=== PATIENT | female | born 1980 | race Caucasian/White ===

== ENCOUNTER 2020-06-18 19:02 | Emergency (ER) | payer BC, SELFPAY ==
[2020-06-18 20:15] LABS: Absolute Lymphocytes (CBC) 3.2 K/uL (0.7-4.9); Basophils % 1.2 % (0-1.3); Hematocrit 33.7 % (36.0-45.0); Lymphocytes % 30.9 % (15.3-44.8); MPV 8.5 fL (7.6-11.3); RBC Red Blood Cell Count 4.59 M/uL (3.86-4.86)
[2020-06-18 20:16] LABS: Protime INR 1.27
--- NOTE | 2020-06-18 20:33 | RAD REPORT ---
EXAM DESCRIPTION: RAD - Chest Single View - 06/18/2020 8:23 pm CLINICAL HISTORY: CHEST PAIN Chest pain. COMPARISON: <Comparisons> FINDINGS: Portable technique limits examination quality. The lungs are grossly clear. The heart is normal in size. No displaced fractures. IMPRESSION: No acute intrathoracic process suspected.
[2020-06-18 20:42] LABS: ALT/SGPT 17 U/L (12-78); AST/SGOT 10 U/L (15-37); Albumin 3.3 g/dL (3.4-5.0); Alkaline Phosphatase 91 U/L (45-117); BUN Blood Urea Nitrogen 8 mg/dL (7-18); Bicarbonate 26 mmol/L (21-32); Bilirubin Direct < 0.1 mg/dL (0-0.2); Bilirubin Total 0.4 mg/dL (0.2-1.0); Glucose Level 163 mg/dL (74-106); Magnesium 2.3 mg/dL (1.8-2.4); NT PRO-BNP 34 pg/mL (<125); Protein, Total 7.4 g/dL (6.4-8.2); Sodium Level 142 mmol/L (136-145); Troponin (Emerg Dept Use Only) < 0.02 ng/mL (0.0-0.045)
[2020-06-18 20:43] LABS: Potassium 2.8 mmol/L (3.5-5.1)
[2020-06-18] MEDS ORDERED: POTASSIUM 25 MEQ EFFERV TAB ONE (21:23)
[2020-06-18] MEDS ORDERED: NA CHLORIDE 0.9% 100 ML ONE (21:23)
[2020-06-18] MEDS ORDERED: KCL 20 MEQ/100 mL IVPB 20 MEQ/100 ML BAG IV ONE (21:23)
--- NOTE | 2020-06-18 23:07 | ER ---
Nurse's Notes [facility] Name: Doris Gamez Age: 40 yrs Sex: Female : 1980 Arrival Date: 06/18/2020 Time: 19:04 Bed 6 Private MD: Diagnosis: Chest pain, unspecified;Hypokalemia Presentation: 06/18 19:19 Chief complaint: Patient states: I was eating dinner and had sudden onset chest pain. I jb4 thought it was a panic attack at. It was a 9/10 and I felt like someone was standing on my chest, and the pain radiated to both arms and up my neck. Coronavirus screen: Client denies travel out of the [place] in the last 14 days. At this time, the client does not indicate any symptoms associated with coronavirus-19. Ebola Screen: No symptoms or risks identified at this time. Initial Sepsis Screen: Does the patient meet any 2 criteria? No. Patient's initial sepsis screen is negative. Does the patient have a suspected source of infection? No. Patient's initial sepsis screen is negative. Risk Assessment: Do you want to hurt yourself or someone else? Patient reports no desire to harm self or others. Onset of symptoms was June 18, 2020. Transition of care: patient was not received from another setting of care. 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 - Social history:: Smoking status: Reported history of juuling and/or vaping. Screenin:56 Abuse screen: Denies threats or abuse. Denies injuries from another. Nutritional wh screening: No deficits noted. Tuberculosis screening: No symptoms or risk factors identified. Fall Risk None identified. Assessment: 19:56 General: Appears in no apparent distress. Behavior is calm, cooperative, appropriate wh for age. Pain: Complains of pain in chest Pain does not radiate. Pain currently is 4 out of 10 on a pain scale. Quality of pain is described as squeezing, Pain began 1 hour ago. Neuro: Level of Consciousness is awake, alert, obeys commands, Oriented to person, place, time, situation, Appropriate for age. Cardiovascular: Heart tones S1 S2 Rhythm is sinus rhythm. Respiratory: Airway is patent Respiratory effort is even, unlabored, Respiratory pattern is regular, symmetrical, Breath sounds are clear bilaterally. GI: Abdomen is non-distended. : No signs and/or symptoms were reported regarding the genitourinary system. EENT: No signs and/or symptoms were reported regarding the EENT system. Derm: Skin is intact, is healthy with good turgor, Skin is pink, warm \T\ dry. normal. Musculoskeletal: Circulation, motion, and sensation intact. 21:25 Reassessment: Patient appears in no apparent distress at this time. No changes from previously documented assessment. Patient and/or family updated on plan of care and expected duration. Pain level reassessed. Patient is alert, oriented x 3, equal unlabored respirations, skin warm/dry/pink. 22:50 Reassessment: Patient appears in no apparent distress at this time. Patient and/or family updated on plan of care and expected duration. Pain level reassessed. Patient is alert, oriented x 3, equal unlabored respirations, skin warm/dry/pink. Vital Signs: 19:19 BP 160 / 86; Pulse 89; Resp 18; Temp 98.9; Pulse Ox 96% on R/A; Weight 117.93 kg (R); jb4 Height 5 ft. 4 in. (162.56 cm); Pain 0/10; 19:58 BP 120 / 75; Pulse 79; Resp 18; Pulse Ox 96% on R/A; wh 21:25 BP 107 / 79; Pulse 73; Resp 18; Pulse Ox 96% on R/A; wh 22:51 BP 131 / 86; Pulse 65; Resp 18; Pulse Ox 100% on R/A; wh 19:19 Body Mass Index 44.63 (117.93 kg, 162.56 cm) jb4 ED Course: 19:04 Patient arrived in ED. cf2 19:21 Triage completed. jb4 19:22 Arm band placed on right wrist. jb4 19:24 Katia Candelario, RN is Primary Nurse. vg1 19:37 Inserted saline lock: 20 gauge in left antecubital area, using aseptic technique. Blood oe collected. 19:48 Phyllis Garcia, RN is Primary Nurse. 19:49 Nathanael Means PA is PHCP. jr8 19:49 Dotne Noyola MD is Attending Physician. jr8 19:57 Patient has correct armband on for positive identification. Bed in low position. Call light in reach. Side rails up X 1. environmental monitoring specialist on. Pulse ox on. NIBP on. 19:58 Patient maintains SpO2 saturation greater than 95% on room air. 20:19 XRAY Chest (1 view) In Process Unspecified. EDMS 23:07 Jalil Grijalva MD is Referral Physician. 8 23:20 No provider procedures requiring assistance completed. IV discontinued, intact, bleeding controlled, No redness/swelling at site. Administered Medications: 21:11 Drug: Potassium Chloride 20 mEq Route: IV; Rate: calculated rate; Site: left wh antecubital; 23:21 Follow up: Response: No adverse reaction; IV Status: Completed infusion 21:11 Drug: Potassium Effervescent Tablet 50 mEq Route: PO; 23:21 Follow up: Response: No adverse reaction Outcome: 23:07 Discharge ordered by . jr8 23:20 Discharged to home ambulatory, with family. 23:20 Condition: stable 23:20 Discharge instructions given to patient, family, Instructed on discharge instructions, follow up and referral plans. POC Demonstrated understanding of instructions, follow-up care, POC 23:21 Patient left the ED. Signatures: Dispatcher [employer] EDCA Nathanael Means PA PA jr8 Jaquan Harmon, RN RN jb4 Prasad Adam Phyllis Garcia, RN RN Nehemias Avila 2 Katia Candelario, RN RN vg1
--- NOTE | 2020-06-18 23:08 | EDPHYS ---
Physician Documentation [facility] Name: Doris Gamez Age: 40 yrs Sex: Female : 1980 Arrival Date: 06/18/2020 Time: 19:04 Bed 6 Private MD: ED Physician Donte Noyola HPI: 06/18 20:47 This 40 yrs old Female presents to ER via Ambulatory with complaints of Chest jr8 Pain. 20:47 The patient or guardian reports chest pain that is located primarily in the anterior jr8 chest wall, bilaterally. Onset: acutely, just prior to arrival, today. The pain radiates to the left shoulder, jaw. Associated signs and symptoms: The patient has no apparent associated signs or symptoms. The chest pain is described as squeezing. Duration: The patient or guardian reports a single episode, that lasted 30 minute(s). Modifying factors: The symptoms are alleviated by nothing. the symptoms are aggravated by nothing. Severity of pain: At its worst the pain was moderate in the emergency department the pain has resolved and did so just prior to arrival. The patient has not experienced similar symptoms in the past. The patient has not recently seen a physician. RN ONCOLOGY CLINICAL: 19:22 LMP 06/04/2020 jb4 Historical: - Allergies: 19:22 Morphine (Hives); jb4 - Home Meds: 19:22 Trazodone Oral [Active]; Methylphendate [Active]; Ativan Oral [Active]; jb4 - PMHx: 19:22 insomnia; ADD/ADHD; Anxiety; jb4 - Immunization history:: Adult Immunizations up to date, Client reports receiving the 2nd dose of the Covid vaccine. - Social history:: Smoking status: Reported history of juuling and/or vaping. ROS: 20:47 Eyes: Negative for injury, pain, redness, and discharge, ENT: Negative for injury, jr8 pain, and discharge, Neck: Negative for injury, pain, and swelling, Respiratory: Negative for shortness of breath, cough, wheezing, and pleuritic chest pain, Abdomen/GI: Negative for abdominal pain, nausea, vomiting, diarrhea, and constipation, Back: Negative for injury and pain, MS/Extremity: Negative for injury and deformity, Skin: Negative for injury, rash, and discoloration, Neuro: Negative for headache, weakness, numbness, tingling, and seizure. 20:47 Cardiovascular: Positive for chest pain, Negative for edema, orthopnea, palpitations, paroxysmal nocturnal dyspnea. Exam: 20:47 Constitutional: This is a well developed, well nourished patient who is awake, alert, jr8 and in no acute distress. Neck: Trachea midline, no thyromegaly or masses palpated, and no cervical lymphadenopathy. Supple, full range of motion without nuchal rigidity, or vertebral point tenderness. No Meningismus. Chest/axilla: Normal chest wall appearance and motion. Nontender with no deformity. No lesions are appreciated. Cardiovascular: Regular rate and rhythm with a normal S1 and S2. No gallops, murmurs, or rubs. Normal PMI, no JVD. No pulse deficits. Respiratory: Lungs have equal breath sounds bilaterally, clear to auscultation and percussion. No rales, rhonchi or wheezes noted. No increased work of breathing, no retractions or nasal flaring. Abdomen/GI: Soft, non-tender, with normal bowel sounds. No distension or tympany. No guarding or rebound. No evidence of tenderness throughout. Back: No spinal tenderness. No costovertebral tenderness. Full range of motion. Skin: Warm, dry with normal turgor. Normal color with no rashes, no lesions, and no evidence of cellulitis. MS/ Extremity: Pulses equal, no cyanosis. Neurovascular intact. Full, normal range of motion. Neuro: Awake and alert, GCS 15, oriented to person, place, time, and situation. Cranial nerves II-XII grossly intact. Motor strength 5/5 in all extremities. Sensory grossly intact. Cerebellar exam normal. Normal gait. Vital Signs: 19:19 BP 160 / 86; Pulse 89; Resp 18; Temp 98.9; Pulse Ox 96% on R/A; Weight 117.93 kg (R); jb4 Height 5 ft. 4 in. (162.56 cm); Pain 0/10; 19:58 BP 120 / 75; Pulse 79; Resp 18; Pulse Ox 96% on R/A; wh 21:25 BP 107 / 79; Pulse 73; Resp 18; Pulse Ox 96% on R/A; wh 22:51 BP 131 / 86; Pulse 65; Resp 18; Pulse Ox 100% on R/A; wh 19:19 Body Mass Index 44.63 (117.93 kg, 162.56 cm) jb4 MDM: 19:49 Patient medically screened. 8 23:06 Data reviewed: vital signs, nurses notes, lab test result(s), EKG, radiologic studies, jr8 plain films. Data interpreted: Pulse oximetry: on room air is 100 %. Interpretation: normal. Counseling: I had a detailed discussion with the patient and/or guardian regarding: the historical points, exam findings, and any diagnostic results supporting the discharge/admit diagnosis, lab results, radiology results, the need for outpatient follow up, a improvement coordinator, to return to the emergency department if symptoms worsen or persist or if there are any questions or concerns that arise at home. Response to treatment: the patient's symptoms have resolved after treatment. 06/18 19:49 Order name: Basic Metabolic Panel 06/18 19:49 Order name: CBC with Diff 06/18 19:49 Order name: LFT's 06/18 19:49 Order name: Magnesium 06/18 19:49 Order name: NT PRO-BNP; Complete Time: 20:44 06/18 19:49 Order name: PT-INR; Complete Time: 20:37 06/18 19:49 Order name: Troponin (emerg Dept Use Only); Complete Time: 20:44 06/18 19:49 Order name: XRAY Chest (1 view); Complete Time: 20:37 06/18 19:49 Order name: Basic Metabolic Panel; Complete Time: 20:44 [facility] 06/18 19:49 Order name: CBC with Automated Diff; Complete Time: 20:37 [facility] 06/18 19:49 Order name: Liver (Hepatic) Function; Complete Time: 20:44 [facility] 06/18 19:49 Order name: Magnesium; Complete Time: 20:44 [facility] 06/18 22:04 Order name: Troponin (emerg Dept Use Only); Complete Time: 23:06 [facility] 06/18 19:49 Order name: EKG; Complete Time: 19:50 06/18 19:49 Order name: Cardiac monitoring; Complete Time: 19:59 06/18 19:49 Order name: EKG - Nurse/Tech; Complete Time: 19:59 06/18 19:49 Order name: IV Saline Lock; Complete Time: 19:59 06/18 19:49 Order name: Labs collected and sent; Complete Time: 06/18 19:49 Order name: O2 Per Protocol; Complete Time: 06/18 19:49 Order name: O2 Sat Monitoring; Complete Time: Administered Medications: 21:11 Drug: Potassium Chloride 20 mEq Route: IV; Rate: calculated rate; Site: left antecubital; 23:21 Follow up: Response: No adverse reaction; IV Status: Completed infusion 21:11 Drug: Potassium Effervescent Tablet 50 mEq Route: PO; 23:21 Follow up: Response: No adverse reaction Disposition: 23:54 Co-signature as Attending Physician, Donte Noyola MD. pkmary Disposition: 06/18/20 23:07 Discharged to Home. Impression: Chest pain, unspecified, Hypokalemia. - Condition is Stable. - Discharge Instructions: Nonspecific Chest Pain, Potassium Content of Foods, Hypokalemia. - Medication Reconciliation Form, Thank You Letter, Antibiotic Education, Prescription Opioid Use form. - Follow up: Jalil Grijalva MD; When: 2 - 3 days; Reason: Recheck today's complaints, Continuance of care, Re-evaluation by your physician. - Problem is new. - Symptoms have improved. Signatures: Dispatcher [employer] EDMS Donte Noyola MD MD [facility] Nathanael Means PA PA jr8 Jaquan Harmon RN RN jb4 Phyllis Garcia RN RN Corrections: (The following items were deleted from the chart) 23:21 23:07 06/18/2020 23:07 Discharged to Home. Impression: Chest pain, unspecified; Hypokalemia. Condition is Stable. Forms are Medication Reconciliation Form, Thank You Letter, Antibiotic Education, Prescription Opioid Use. Follow up: Jalil Grijalva; When: 2 - 3 days; Reason: Recheck today's complaints, Continuance of care, Re-evaluation by your physician. Problem is new. Symptoms have improved. jr8
[2020-06-18 23:36] VITALS: TEMP 98.9
[2020-06-18 23:40] VITALS: BP 131/86; O2SAT 100
== END 2020-06-18 23:21 | disposition home or self-care (01) ==
LOC: ER 19:02
DX: E87.6 Hypokalemia (principal); F41.9 Anxiety disorder, unspecified; F90.9 Attention-deficit hyperactivity disorder, unspecified type; Z88.5 Allergy status to narcotic agent
CPT/HCPCS: 36415; 71045; 80048; 80076; 83735; 83880; 84484; 85025; 85610; 93005; 96365; 96366; 99285; J3480

== ENCOUNTER 2021-05-03 03:41 | Observation (INO) | payer BC, SELFPAY ==
--- OUTSIDE RECORDS SUMMARY | 2021-05-03 03:45 | XMS REPORT | Continuity of Care Document ---
:1980 Author Organization [facility] t Address [address] [place] [address] Care Team Providers Name Role Phone Master Mueller MD Primary Care Physician Master Mueller MD Attending Clinician Doctor Unassigned, Name Attending Clinician Unavailable Payers Payer Name Policy Type Policy Number Effective Date Expiration Date S ource Problems Condition Condition Condition Status Onset Resolution Last Treating Co mments Source Name Details Category Date Date Treatment Clinician Date Presence Presence Disease Active Unive rs of 52 mg of 52 mg 1-21 ity [place] trel-rele[place] trel-relea 00 Me dical sing sing Branch intrauteri intrauteri ne device ne device (IUD) (IUD) Attention Attention Disease Active Uni vers deficit deficit 1-07 ity of disorder disorder 00:00: [place] (ADD) in (ADD) in 00 Medica l adult adult Branch Morbid Morbid Disease Active Univers obesity obesity 1-06 [place] of with body with body [place] mass index mass index 00 Me dical of of Branch 40.0-49.9 40.0-49.9 Anxiety Anxiety Disease Active Univers 2-06 ity of 00:00: [place] 00 Medical Branch Dysmenorrh Dysmenorrh Disease Active U bisi ea ea 1-17 ity of 00:00: [place] 00 Medical [facility] Obesity Obesity Disease Active Univers (BMI (BMI 1-17 ity of 30-39.9) 30-39.9) 00:00: Medical Branch Well woman Well woman Disease Active U nivers exam exam -17 ity of 00:00: [place] 00 Medical Branch Allergies, Adverse Reactions, Alerts Allergy Allergy Status Severity Reaction(s) Onset Inactive Treating Comm ents Source Name Type Date Date Clinician Morphine Propensi Active Rash Univer s ty to 03-03 ity of adverse 00:00: [place] reaction 00 Medical s Branch Social History Social Habit Start Date Stop Date Quantity Comments Source Exposure to Not sure [facility] SARS-CoV-2 [facility] (event) [facility] Alcohol intake 2021-03-02 2021-03-02 0 /d University of 00:00:00 00:00:00 [facility] History of 2014-02-21 Cigarette Smoker Universi ty of tobacco use 00:00:00 [facility] Sex Assigned At [birth year] Universit y of 00:00:00 00:00:00 [facility] Smoking Status Start Date Stop Date Source Former smoker 2020-04-14 00:00:00 2020-04-14 00:00:00 Universi ty of [facility] Medications Ordered Filled Start Stop Current Ordering Indication Dosage Frequency Signature Comments Components Source Medication Medication Date Date Medication? Clinician (SIG) Name Name methylpheni Yes [id number] 72mg Take 2 Univers date HCl 36 2-01 tablets by it y of mg 24 hr 00:00: mouth [place] tablet 00 daily. Medical Branch LORazepam Yes [id number] 1mg Take 1 Univers mg tablet 2-01 tablet by ity o f 00:00: mouth 2 [place] (two) Medical times [facility] daily as needed for Anxiety or Agitation. methylpheni Yes [id number] 72mg Take 2 Univers date HCl 36 2-01 tablets by it y of mg 24 hr 00:00: mouth [place] tablet 00 daily. Medical Branch LORazepam 1 Yes [id number] 1mg Take 1 Univers mg tablet 2-01 tablet by ity o f 00:00: mouth 2 [place] (two) Medical times [facility] daily as needed for Anxiety or Agitation. traZODone Yes [id number] TAKE 4 Un alysia 50 mg 1-10 TABLETS BY ity of tablet 00:00: MOUTH [place] 00 EVERY Medical NIGHT AT Branch BEDTIME traZODone Yes [id number] TAKE 4 Un alysia 50 mg 1-10 TABLETS BY ity of tablet 00:00: MOUTH [place] 00 EVERY Medical NIGHT AT Branch BEDTIME ARIPiprazol 2020-02 Yes [id number] 10mg Take 1 Univers e (ABILIFY) 2-08 tablet by ity of 10 mg 00:00: mouth [place] tablet 00 daily. Medical [facility] ARIPiprazol 2020-02 Yes [id number] 10mg Take 1 Univers e (ABILIFY) 2-08 tablet by ity of 10 mg 00:00: mouth [place] tablet 00 daily. [facility] Immunizations Ordered Filled Immunization Date Status Comments [facility] e Immunization Name Name Influenza Virus 2021-03-02 Completed Universit y of Vaccine Quad IM, 00:00:00 [facility] dical Preserv and ABX Branch Free 6 MO-64 YRS Influenza Virus 2021-03-02 Completed Universit y of Vaccine Quad IM, 00:00:00 [facility] dical Preserv and ABX Branch Free 6 MO-64 YRS SARS-COV-2 COVID-19 2020-05-18 Completed Unive rsity of MODERNA VACCINE 00:00:00 [facility] SARS-COV-2 COVID-19 2020-05-18 Completed Unive rsity of MODERNA VACCINE 00:00:00 [facility] SARS-COV-2 COVID-19 2020-04-20 Completed Unive rsity of MODERNA VACCINE 00:00:00 [facility] SARS-COV-2 COVID-19 2020-04-20 Completed Unive rsity of MODERNA VACCINE 00:00:00 [facility] Influenza Virus 2020-02-27 Completed Universit y of Vaccine Quad .5 mL 00:00:00 [facility] IM 6+ MO Branch Influenza Virus 2020-02-27 Completed Universit y of Vaccine Quad .5 mL 00:00:00 [facility] 6+ MO Branch Procedures Procedure Date / Time Performing Clinician Source Performed MEDICATION CORRESPONDENCE 2021-03-26 06:01:00 Doctor Unassigned, [facility] Encounters Start End Encounter Admission Attending Care Care Encounter Source Date/Time Date/Time Type Type Clinicians Facility Department ID 2021-03-30 2021-03-30 Telephone AMINA Mueller [id number] Univers 00:00:00 00:00:00 [facility] [id number] it y of Master MOREL [id number] Jovon as BISHNU?BLEA [id number] [place] ZAMUDIO [address] [place] [address] MEDICAL OFFICE BUILDING 2021-03-26 2021-03-26 Orders Doctor ILEANA [id number] Univers 00:00:00 00:00:00 Only Unassigned, CRIO [id number] ity of Progress [facility] [id number] Jovon as [id number] [facility] 009 [facility] Results This patient has no known results.
[2021-05-03] MEDS ORDERED: CYCLOBENZAPRINE 10 MG TAB ONE (06:00)
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
[2021-05-03] MEDS ORDERED: PANTOPRAZOLE 40MG TABLET PO ONE (07:32)
[2021-05-03 07:35] LABS: SARS-COV-2 RT PCR NEGATIVE (NEGATIVE)
[2021-05-03] MEDS ORDERED: MORPHINE 4 MG/ML SYR IV PRN ×2 (08:56)
[2021-05-03] MEDS ORDERED: ONDANSETRON 4 MG/2 ML VIAL IV PRN ×2 (08:56→09:04)
[2021-05-03] MEDS ORDERED: FENTANYL CITR 100 MCG/2 ML IV PRN (09:00)
[2021-05-03] MEDS ORDERED: HYDROCODONE/APAP 5/325 MG TAB PO ONE (11:32)
[2021-05-03] MEDS ORDERED: HYDROCODONE/APAP 5/325 MG TAB ONE (11:34)
[2021-05-03 22:58] VITALS: TEMP 97.7
[2021-05-03 23:03] VITALS: BP 97/65; O2SAT 98
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
== END 2021-05-03 21:00 | disposition home or self-care (01) ==
LOC: ER 03:41 → ERHOLD 06:48 → UNDODISOB 11:52 → 4TH 21:42 → ERHOLD 21:42
PROVIDERS: ADMIT Surgery; ATTEND Surgery
DX: S27.0XXA Traumatic pneumothorax, initial encounter (principal); S22.42XA Multiple fractures of ribs, left side, initial encounter for closed fracture; V49.40XA Driver injured in collision with unspecified motor vehicles in traffic accident, initial encounter; F41.9 Anxiety disorder, unspecified; G47.00 Insomnia, unspecified; F90.9 Attention-deficit hyperactivity disorder, unspecified type; F17.290 Nicotine dependence, other tobacco product, uncomplicated; Z88.6 Allergy status to analgesic agent; Z20.822 Contact with and (suspected) exposure to COVID-19
CPT/HCPCS: 0240U; 70450; 71250; 72125; 99285; J3010; J2405

== ENCOUNTER 2021-05-03 14:28 | Observation (INO) | payer BC ==
--- OUTSIDE RECORDS SUMMARY | 2021-05-03 14:31 | XMS REPORT | Continuity of Care Document ---
:1980 Author Organization [facility] t Address [address] [place] [address] Care Team Providers Name Role Phone Master [...] deficit 1-07 ity of disorder disorder 00:00: [place] (ADD) in (ADD) in 00 Medica l adult adult Branch Morbid Morbid Disease Active Univers obesity obesity 1-06 ity of with body with body 00:00: Cathleen s mass index mass index 00 Me dical of of Branch 40.0-49.9 40.0-49.9 Anxiety Anxiety Disease Active Univers 2-06 ity of 00:00: [place] 00 Medical Branch Dysmenorrh Dysmenorrh Disease Active U bisi ea ea 1-17 ity of 00:00: 00 Medical Branch Obesity Obesity Disease Active Univers (BMI (BMI 1-17 ity of 30-39.9) 30-39.9) 00:00: Medical Branch Well woman Well woman Disease Active U nivers exam exam -17 ity of 00:00: [place] [facility] Allergies, Adverse Reactions, Alerts Allergy Allergy Status Severity Reaction(s) Onset Inactive Treating Comm ents Source Name Type Date Date Clinician Morphine Propensi Active Rash Univer s ty to 03-03 ity of adverse 00:00: [place] reaction 00 Medical s Branch Social History Social Habit Start Date Stop Date Quantity Comments Source Exposure to Not sure [facility] SARS-CoV-2 [facility] (event) [place] Alcohol intake 2021-03-02 2021-03-02 0 /d University of 00:00:00 00:00:00 [facility] History of 2014-02-21 Cigarette Smoker Universi ty of tobacco use 00:00:00 [facility] Sex Ass[birth year] At [birth year] Universit y of 00:00:00 00:00:00 [facility] Smoking Status Start Date Stop Date Source Former smoker 2020-04-14 00:00:00 2020-04-14 00:00:00 Universi ty of [facility] Medications Ordered Filled Start Stop Current Ordering Indication Dosage Frequency Signature Comments Components Source Medication Medication Date Date Medication? Clinician (SIG) Name Name methylpheni Yes [id number] 72mg Take 2 Univers date HCl 36 2-01 tablets by it y of mg 24 hr 00:00: mouth [place] tablet 00 daily. Medical Branch LORazepam Yes [id number] 1mg Take 1 Univers mg tablet 2-01 tablet by ity o f 00:00: mouth 2 (two) Medical times [place] daily as needed for Anxiety or Agitation. methylpheni Yes [id number] 72mg Take 2 Univers date HCl 36 2-01 tablets by it y of mg 24 hr 00:00: mouth [place] tablet 00 daily. Medical Branch LORazepam 1 Yes [id number] 1mg Take 1 Univers mg tablet 2-01 tablet by ity o f 00:00: mouth 2 (two) Medical times [place] daily as needed for Anxiety or Agitation. traZODone Yes [id number] TAKE 4 Un alysia 50 mg 1-10 TABLETS BY ity of tablet 00:00: MOUTH [place] 00 EVERY Medical NIGHT AT Branch BEDTIME traZODone 0 Yes [id number] TAKE 4 Un alysia 50 mg 1-10 TABLETS BY ity of tablet 00:00: MOUTH [place] 00 EVERY Medical NIGHT AT Branch BEDTIME ARIPiprazol 2020-02 Yes [id number] 10mg Take 1 Univers e (ABILIFY) 2-08 tablet by ity of 10 mg 00:00: mouth [place] tablet 00 daily. Medical Branch ARIPiprazol 2020-02 Yes [id number] 10mg Take 1 Univers e (ABILIFY) 2-08 tablet by ity of 10 mg 00:00: mouth [place] tablet 00 daily. [facility] Immunizations Ordered Filled Immunization Date Status Comments [facility] e Immunization Name Name Influenza Virus 2021-03-02 Completed Universit y of Vaccine Quad IM, 00:00:00 [facility] dical Preserv and ABX Branch Free 6 MO-64 YRS Influenza Virus 2021-03-02 Completed Universit y of Vaccine Quad IM, 00:00:00 [facility] dical Preserv and ABX Branch Free 6 MO-64 YRS SARS-COV-2 COVID-19 2020-05-18 Completed Unive rsity of MODERNA VACCINE 00:00:00 [facility] SARS-COV-2 COVID-19 2020-05-18 Completed Unive rsity of MODERNA VACCINE 00:00:00 [facility] SARS-COV-2 COVID-19 2020-04-20 Completed Unive rsity of MODERNA VACCINE 00:00:00 [facility] SARS-COV-2 COVID-19 2020-04-20 Completed Unive rsity of MODERNA VACCINE 00:00:00 [facility] Influenza Virus 2020-02-27 Completed Universit y of Vaccine Quad .5 mL 00:00:00 [place] [facility] IM 6+ MO Branch Influenza Virus 2020-02-27 Completed Universit y of Vaccine Quad .5 mL 00:00:00 [place] [facility] 6+ MO Branch Procedures Procedure Date / Time Performing Clinician Source Performed MEDICATION CORRESPONDENCE 2021-03-26 06:01:00 Doctor Unassigned, [facility] [place] [facility] Encounters Start End Encounter Admission Attending Care Care Encounter Source Date/Time Date/Time Type Type Clinicians Facility Department ID 2021-03-30 2021-03-30 Telephone AMINA Mueller [id number] Univers 00:00:00 00:00:00 [facility] [id number] it y of Master ADRIEL [id number] Jovon as BISHNU?BLEA [id number] [place] [address] MEDICAL OFFICE BUILDING 2021-03-26 2021-03-26 Orders Doctor ILEANA [id number] Univers 00:00:00 00:00:00 Only Unassigned, CIRO [id number] ity of [place] [facility] [id number] Jovon as [phone] [place] [id number] Branch Results This patient has no known results.
[2021-05-03 15:51] LABS: Absolute Lymphocytes (CBC) 1.5 K/uL (0.7-4.9); Hematocrit 33.5 % (36.0-45.0); Lymphocytes % 10.9 % (15.3-44.8); MPV 7.9 fL (7.6-11.3); RBC Red Blood Cell Count 4.48 M/uL (3.86-4.86)
[2021-05-03] MEDS ORDERED: NA CHLORIDE 0.9% 1,000 ML ONE (15:55)
[2021-05-03] MEDS ORDERED: FENTANYL CITR 100 MCG/2 ML ONE ×2 (15:55→18:12)
[2021-05-03] MEDS ORDERED: ONDANSETRON 4 MG/2 ML VIAL ONE (15:55)
--- NOTE | 2021-05-03 16:03 | RAD REPORT ---
EXAM DESCRIPTION: RAD - Chest Single View - 05/03/2021 3:53 pm CLINICAL HISTORY: CHEST PAIN COMPARISON: Chest Single View dated 06/18/2020; Thorax Wo Con dated 05/03/2021 FINDINGS: Lines: None. Lungs: Ill-defined airspace disease bilaterally, left greater than right. Pleural: Subpleural thickening in left lung. Cardiac: The heart size is within normal limits. Bones: Rib fractures better demonstrated on the CT from earlier in the day. Other: IMPRESSION: Basilar airspace disease, left greater than right probably represents atelectasis in the setting of acute rib fractures. No pneumothorax identified .
[2021-05-03 16:05] LABS: Potassium 3.5 mmol/L (3.5-5.1)
--- NOTE | 2021-05-03 16:58 | RAD REPORT ---
EXAM DESCRIPTION: CT - Thorax W/ Con - 05/03/2021 4:46 pm CLINICAL HISTORY: PTX;Pain COMPARISON: Thorax Wo Con dated 05/03/2021; Chest Single View dated 05/03/2021 FINDINGS: Chest Wall: Small right thyroid nodule. Lungs: There is underlying consolidative airspace disease in left lower lobe. Pleura: Small left greater than right pleural effusions. Mediastinum/kasey: No pathologic lymphadenopathy. Pulmonary arteries/Aorta: No filling defect identified. No aortic aneurysm. Heart: No significant pericardial effusion. Normal heart size. Upper abdomen: Partial gastrectomy. Bones: Left third, fourth, fifth rib fractures again noted. All CT scans are performed using dose optimization technique as appropriate and may include automated exposure control or mA/KV adjustment according to patient size. IMPRESSION: Bilateral pleural effusions, left greater than right. The left pleural fluid has Hounsfi eld units above that of simple fluid. This may represent a combination of a small hemothorax and flui d on the left. Underlying airspace disease, presumably atelectasis given the time course of developme nt. No pneumothorax.
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
[2021-05-03] MEDS ORDERED: NA CHLORIDE 0.9% 100 ML IV ONE (18:13)
[2021-05-03] MEDS ORDERED: PIPERACIL/TAZO 3.375 GM VIAL IV ONE (18:13)
[2021-05-03] MEDS ORDERED: ONDANSETRON 4 MG/2 ML VIAL IV PRN ×3 (21:06→23:42)
[2021-05-03] MEDS ORDERED: ACETAMINOPHEN 500 MG TAB PO PRN ×2 (21:06→23:42)
[2021-05-03] MEDS ORDERED: Levofloxacin 750mg IV 750 MG/150 ML BAG IV SCH ×2 (22:00→23:00)
[2021-05-03] MEDS ORDERED: TRAZODONE 50 MG TABLET PO PRN ×2 (22:37→23:42)
[2021-05-03] MEDS ORDERED: MORPHINE 2 MG/ML SYR IV PRN (22:37)
[2021-05-03] MEDS ORDERED: MEPERIDINE HCL 25 MG/ML SYR IV PRN ×2 (22:48→23:42)
[2021-05-03] MEDS ORDERED: Levofloxacin 750mg IV 750 MG/150 ML BAG IV ONE ×2 (23:00)
[2021-05-03] MEDS ORDERED: HYDROCORTISONE SUC 100 MG INJ IV ONE (23:47)
[2021-05-03] MEDS ORDERED: MEPERIDINE HCL 25 MG/ML SYR IVP PRN (23:47)
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
[2021-05-03] MEDS ORDERED: MEPERIDINE HCL 25 MG/ML SYR ONE (23:59)
[2021-05-04] MEDS ORDERED: Levofloxacin 750mg IV 750 MG/150 ML BAG IV ONE
[2021-05-04] MEDS ORDERED: TRAZODONE 50 MG TABLET ONE
[2021-05-04] MEDS ORDERED: ALBUTEROL 2.5 MG/3 ML NEB SOL NEB SCH ×2 (02:00)
[2021-05-04] MEDS ORDERED: IPRATROPIUM BROM 0.5MG/2.5ML NEB SCH ×2 (02:00)
[2021-05-04 03:04] VITALS: BMI 43.9
[2021-05-04] MEDS: MEPERIDINE HCL 25 MG/ML SYR IVP PRN ×3 (04:50→12:21)
[2021-05-04 05:34] LABS: Absolute Lymphocytes (CBC) 0.9 K/uL (0.7-4.9); Hematocrit 30.5 % (36.0-45.0); Lymphocytes % 8.5 % (15.3-44.8); RBC Red Blood Cell Count 4.03 M/uL (3.86-4.86)
[2021-05-04 05:47] LABS: Bilirubin Total 0.6 mg/dL (0.2-1.0); Phosphorus 2.1 mg/dL (2.5-4.9); Potassium 3.6 mmol/L (3.5-5.1); Protein, Total 7.1 g/dL (6.4-8.2)
[2021-05-04 08:01] LABS: Anisocytosis SLIGHT; Blood Morphology Comment NOTED (NOT SEEN); Hypochromasia 1+; Platelet Estimate ADEQ; White Blood Cell Scan OK (OK)
[2021-05-04] MEDS ORDERED: POTASSIUM PHOS 30 MM in NA CHLORIDE 0.9% 500 ML IV ONE (09:00)
[2021-05-04] MEDS ORDERED: LIDOCAINE 5% OINT 30 GM TUBE TOP SCH (09:00)
[2021-05-04] MEDS ORDERED: ENOXAPARIN 40 MG/0.4 ML SQ SCH ×2 (09:00)
[2021-05-04 09:39] VITALS: TEMP 98.1
[2021-05-04 12:39] VITALS: BP 145/90; O2SAT 97
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
[2021-05-04] MEDS ORDERED: Levofloxacin 750mg IV 750 MG/150 ML BAG IV SCH ×2 (21:00)
== END 2021-05-04 13:45 | disposition home or self-care (01) ==
LOC: ER 14:28 → ERHOLD 22:03 → INTOOBSV 22:03 → 4TH 22:04 → ERHOLD 22:04 → 4TH 22:15
PROVIDERS: ADMIT Hospitalist; ATTEND Hospitalist
DX: R07.81 Pleurodynia (principal); S22.42XA Multiple fractures of ribs, left side, initial encounter for closed fracture; R09.02 Hypoxemia; J98.11 Atelectasis; J90 Pleural effusion, not elsewhere classified; G47.00 Insomnia, unspecified; F41.9 Anxiety disorder, unspecified; F90.9 Attention-deficit hyperactivity disorder, unspecified type; Z88.6 Allergy status to analgesic agent; Z98.84 Bariatric surgery status
CPT/HCPCS: 87040 ×2; 85025 ×2; 80048; 36415; 86900; 83735; 86850; 84100; 80061; 86901; 80053; 83880; 71260; 71045; 94640; 94760; 96375; 96374; 99285; Q9967; J2543; J1650; J3010 ×2; J2175 ×4; J7040; J7030; J1720; J2405